=== PATIENT | female | born 1985 | race African-American/Black ===

== ENCOUNTER 2018-10-30 16:06 | Emergency (ER) | payer MEDICAID ==
[2018-10-30 16:08] VITALS: BP 142/88
[2018-10-30] MEDS ORDERED: IBUPROFEN 800 MG TABLET PO ONE (16:15)
[2018-10-30] MEDS ORDERED: PLEASE ENTER WEIGHT MC SCH (16:30)
[2018-10-30] MEDS ORDERED: ACETAMINOPHEN 500 MG TABLET PO ONE (16:30)
[2018-10-30] MEDS ORDERED: ACETAMINOPHEN 500 MG TABLET ONE (17:04)
[2018-10-30] MEDS ORDERED: IBUPROFEN 800 MG TABLET ONE (17:04)
--- NOTE | 2018-10-30 17:08 | NUR ---
pt has a hx of migraines, is out of her meds for a couple of days, has a prescription at the pharmacy "but has been in too much pain to pick them up"
[2018-10-30 17:09] LABS: RAPID INFLUENZA A POSITIVE (Negative); RAPID INFLUENZA B Negative (Negative)
== END 2018-10-30 18:44 | disposition home or self-care (01) ==
LOC: ED 18:38
DX: J10.1 Influenza due to other identified influenza virus with other respiratory manifestations (principal); G43.909 Migraine, unspecified, not intractable, without status migrainosus
CPT/HCPCS: 71046; 87400; 99284

== ENCOUNTER 2019-07-18 09:04 | Emergency (ER) | payer MEDICAID ==
[~2019-07-18] VITALS: Ht 162.6 cm; Wt 93.0 kg
[2019-07-18 09:11] VITALS: BP 154/106
[2019-07-18] MEDS ORDERED: IBUPROFEN 600 MG TABLET ONE (09:42)
--- NOTE | 2019-07-18 09:49 | NUR ---
PT PROVIDED WITH WATER AND INFORMED OF NEED FOR URINE SAMPLE. CALL LIGHT IN REACH. PT DENIES ANY FURTHER NEEDS OR CONCERNS AT THIS TIME.
[2019-07-18] MEDS ORDERED: IBUPROFEN 200 MG TABLET PO ONE (10:00)
[2019-07-18 10:11] LABS: RAPID INFLUENZA A Negative (Negative); RAPID INFLUENZA B Negative (Negative)
--- NOTE | 2019-07-18 11:20 | NUR ---
labs and urine sent.
[2019-07-18 11:32] LABS: MICROSCOPIC NOT IND
[2019-07-18 11:34] LABS: CULTURE INDICATED? NO
[2019-07-18 11:34] LABS: BASOPHILS # (AUTO) 0.02 x10^3/uL (0-0.1); BASOPHILS % (AUTO) 0 % (0-1); EOSINOPHILS % (AUTO) 2 % (1-7); LYMPHOCYTES # (AUTO) 1.38 x10^3/uL (1-3.4); LYMPHOCYTES % (AUTO) 29 % (22-44); MD NO; MEAN CORPUSCULAR HEMOGLOBIN 30.6 pg (27.0-34.8); MEAN CORPUSCULAR HGB CONC 33.1 g/dL (32.4-35.8); MEAN CORPUSCULAR VOLUME 92.5 fL (80-100); MEAN PLATELET VOLUME 7.4 fL (7.4-10.4); MONOCYTES # (AUTO) 0.39 x10^3/uL (0.2-0.8); MONOCYTES % (AUTO) 8 % (2-9); NEUTROPHILS # (AUTO) 2.94 x10^3/uL (1.8-6.8); NEUTROPHILS % (AUTO) 61 % (42-75); PLATELET COUNT 277 x10^3/uL (130-400); RED BLOOD COUNT 4.38 x10^6/uL (3.82-5.3); RED CELL DISTRIBUTION WIDTH 14.7 % (9.6-15.2)
[2019-07-18 11:43] LABS: ALBUMIN 3.4 g/dL (3.4-5.0); ANION GAP 2 mmol/L (5-15); CALCIUM 8.3 mg/dL (8.5-10.1); CHLORIDE 110 mmol/L (98-107)
[2019-07-18 11:46] LABS: ALANINE AMINOTRANSFERASE 33 U/L (12-78); ALKALINE PHOSPHATASE 50 U/L (45-117); BILIRUBIN,TOTAL 0.3 mg/dL (0.2-1.0); CREATININE 0.73 mg/dL (0.55-1.02); TOTAL PROTEIN 7.5 g/dL (6.4-8.2)
== END 2019-07-18 12:21 | disposition home or self-care (01) ==
LOC: ED 12:06
DX: B34.9 Viral infection, unspecified (principal)
CPT/HCPCS: 36415; 80053; 81003; 84145; 85025; 87400; 99283

== ENCOUNTER 2019-09-23 17:53 | Emergency (ER) | payer MEDICAID ==
[~2019-09-23] VITALS: Ht 162.6 cm; Wt 92.5 kg
--- NOTE | 2019-09-23 18:26 | NUR ---
ASSUMED CARE OF PT AT THIS TIME FROM [facility]. AMBULATORY WITH STEADY GAIT. 33 Y/O F REPORTS "PAIN AND WELT ON MY RIGHT UPPER BACK SINCE MONDAY, IT HURTS TO TOUCH AND MY RIBS HURT TOO, THEN FOR OVER A MONTH I'VE HAD NAUSEA, VOMITING AND DIARRHEA. THE DOCTORS AT [facility] AND DR. RUBIO SAYS I COULD I HAVE CROHN'S, THE PAIN IS BAD IN MY STOMACH." DENIES ANY INJURY OR TRAUMA TO BACK/RIBS. RATES PAIN 05/14. CONT PULSE OX, BP MONITORS APPLIED. VSS, BP ELEVATED, DENIES HX HTN. CALL LIGHT IN REACH. FALL PRECAUTIONS IN PLACE. A&OX4. DR. TORRES AT BEDSIDE FOR EVALUATION. AWAITING ORDERS. DISCUSSED VITALS WITH ERP, AWARE.
[2019-09-23 18:30] VITALS: BP 146/103
--- NOTE | 2019-09-23 18:33 | NUR ---
DR. TORRES REMAINS AT BEDSIDE DISCUSSING POC WITH PT. PT UPSET ABOUT POC AND MD RECOMMENDATIONS, STATES "FUCKING IDIOT" TO MD, PULLING MONITORS OFF AND GETTING DRESSED. PT THEN SITS ON BED AND AGREES TO GET XRAY, TALKING ON CELL PHONE.
--- NOTE | 2019-09-23 18:40 | NUR ---
XRAY AT BEDSIDE
--- NOTE | 2019-09-23 19:00 | NUR ---
BEDSIDE REPORT AND CARE TO JOELLEN RN'S AT THIS TIME
== END 2019-09-23 19:25 | disposition home or self-care (01) ==
LOC: ED 18:15
DX: R19.7 Diarrhea, unspecified (principal); R10.84 Generalized abdominal pain; M54.6 Pain in thoracic spine; G43.909 Migraine, unspecified, not intractable, without status migrainosus
CPT/HCPCS: 71045; 99283

== ENCOUNTER 2019-11-03 23:12 | Emergency (ER) | payer MEDICAID ==
[~2019-11-03] VITALS: Ht 165.1 cm; Wt 95.6 kg
[2019-11-03 23:22] VITALS: BP 130/70
--- NOTE | 2019-11-04 01:09 | NUR ---
pt to room from lobby
[2019-11-04] MEDS ORDERED: ONDANSETRON ODT 4 MG PO ONE (01:30)
[2019-11-04] MEDS ORDERED: KETOROLAC 30 MG/1 ML IM ONE (01:30)
[2019-11-04] MEDS ORDERED: FAMOTIDINE 20 MG TABLET PO ONE (01:30)
[2019-11-04] MEDS ORDERED: SUMATRIPTAN 6MG/0.5ML SQ ONE ×2 (01:30→01:49)
[2019-11-04] MEDS ORDERED: KETOROLAC 60 MG/2 ML ONE (01:49)
[2019-11-04] MEDS ORDERED: FAMOTIDINE 20 MG TABLET ONE (01:49)
[2019-11-04] MEDS ORDERED: ONDANSETRON ODT 4 MG ONE (01:49)
[2019-11-04 01:53] LABS: BASOPHILS # (AUTO) 0.05 x10^3/uL (0-0.1); BASOPHILS % (AUTO) 1 % (0-1); EOSINOPHILS # (AUTO) 0.14 x10^3/uL (0-0.4); EOSINOPHILS % (AUTO) 2 % (1-7); LYMPHOCYTES % (AUTO) 42 % (22-44); MD NO; MEAN CORPUSCULAR HEMOGLOBIN 30.9 pg (27.0-34.8); MEAN CORPUSCULAR VOLUME 90.8 fL (80-100); MEAN PLATELET VOLUME 7.7 fL (7.4-10.4); MONOCYTES % (AUTO) 6 % (2-9); NEUTROPHILS # (AUTO) 4.16 x10^3/uL (1.8-6.8); NEUTROPHILS % (AUTO) 50 % (42-75); PLATELET COUNT 265 x10^3/uL (130-400); RED BLOOD COUNT 4.33 x10^6/uL (3.82-5.3); RED CELL DISTRIBUTION WIDTH 14.7 % (9.6-15.2)
[2019-11-04 02:05] LABS: ALBUMIN 3.4 g/dL (3.4-5.0); ANION GAP 6 mmol/L (5-15); CALCIUM 8.4 mg/dL (8.5-10.1); CHLORIDE 110 mmol/L (98-107)
[2019-11-04 02:08] LABS: MICROSCOPIC NOT IND
[2019-11-04 02:11] LABS: ALANINE AMINOTRANSFERASE 34 U/L (12-78); ALKALINE PHOSPHATASE 54 U/L (45-117); BILIRUBIN,TOTAL 0.3 mg/dL (0.2-1.0); CREATININE 1.09 mg/dL (0.55-1.02); TOTAL PROTEIN 7.1 g/dL (6.4-8.2)
[2019-11-04 02:13] LABS: CULTURE INDICATED? NO
== END 2019-11-04 03:55 | disposition home or self-care (01) ==
LOC: ED 11-04 03:00
DX: G43.909 Migraine, unspecified, not intractable, without status migrainosus (principal); F17.200 Nicotine dependence, unspecified, uncomplicated
CPT/HCPCS: 36415; 80053; 81003; 83690; 84703; 85025; 96372; 99284; J1885; J3030; Q0162